=== PATIENT | male | born 1930 | race Caucasian/White ===

== ENCOUNTER 2017-02-07 13:04 | Emergency (ER) | payer MEDICARE, OTHER ==
[2017-02-07 13:11] VITALS: BP 151/85
[2017-02-07] MEDS ORDERED: Magnesium Citrate Solution 296 ML Bottle PO ONE (14:25)
--- NOTE | 2017-02-07 14:33 | EDM.PDOC ---
ED HPI GENERAL MEDICAL PROBLEM - General Chief Complaint: General Stated Complaint: constipation Time Seen by Provider: 02/07/17 13:37 Source of Information: Reports: Patient, Family () History Limitations: Reports: No limitations - History of Present Illness INITIAL COMMENTS - FREE TEXT/NARRATIVE: Tutu is an 86 yo male who presents to the ER accompanied by his with concerns of constipation. His states he hasn't had a bowel movement for the past 6 days. She admits he has been having some difficulty with bowel movements ever since having a stroke in July. She states the stroke affected his memory, vision and general weakness. Per his , he used to have loose stools but is now having trouble with constipation. She has been giving him a stool softener (Docusate) and just started Miralax as well with no results. She states a home health nurse came and saw him yesterday and did a rectal check. Denies any stool in the vault and told them his belly was soft with good bowel sounds. Since he still hasn't went [facility] and [facility] recommended he be evaluated in the [facility]. He denies having any abdominal pain. Appetite is still strong. Admits to nausea in the morning but has been that way since the stroke. No emesis. Onset: gradual - Related Data Allergies Allergy/AdvReac Type Severity Reaction Status Date / Time No Known Allergies Allergy Verified 02/07/17 13:18 Home Meds: Home Meds Aspirin [Halfprin] 81 mg PO DAILY 09/10/15 [History] Atenolol 50 mg PO DAILY 09/10/15 [History] Diltiazem [Cardizem CD] 240 mg PO DAILY 09/10/15 [History] Hydroxyurea [Hydrea] 1 cap PO DAILY 09/10/15 [History] Losartan [Cozaar] 25 mg PO DAILY 09/10/15 [History] DULoxetine HCl [Duloxetine HCl] 60 mg PO DAILY 02/07/17 [History] Dabigatran Etexilate Mesylate [Pradaxa] 150 mg PO BID 02/07/17 [History] Docusate Sodium [Stool Softener] 50 mg PO BID 02/07/17 [History] Melatonin 5 mg PO DAILY 02/07/17 [History] Ondansetron HCl [Zofran] 4 mg PO TID PRN 02/07/17 [History] Polyethylene Glycol 3350 [MiraLAX] 17 gm PO BID 02/07/17 [History] atorvaSTATin Calcium [Atorvastatin Calcium] 20 mg PO DAILY 02/07/17 [History] Past Medical History HEENT History: Reports: Cataract Other HEENT History: frequent nasal drainage Cardiovascular History: Reports: Blood clots/VTE/DVT, High cholesterol, Hypertension Gastrointestinal History: Reports: Chronic constipation Genitourinary History: Reports: Other (see below) Other Genitourinary History: prostrate cancer Musculoskeletal History: Reports: Arthritis Neurological History: Reports: CVA Other Neuro History: thoughts of a "mini" stroke in past Psychiatric History: Reports: Depression Other Hematologic History: high platelet count Oncologic (Cancer) History: Reports: Prostate - Past Surgical History HEENT Surgical History: Reports: Cataract surgery GI Surgical History: Reports: Hernia repair/other Other Male Surgeries/Procedures: removal of prostate for CA Neurological Surgical History: Reports: None Social & Family History - Tobacco Use Smoking Status *Q: Never Smoker Used Tobacco, but Quit: Yes Month Tobacco Last Used: 1964 ED ROS GENERAL - Review of Systems Review Of Systems: See Below Constitutional: Reports: no symptoms HEENT: Reports: No symptoms Respiratory: Reports: No Symptoms Cardiovascular: Reports: No symptoms GI/Abdominal: Reports: Constipation, Nausea. Denies: Abdominal pain, Bloody stool, Diarrhea, Decreased appetite, Distension, Vomiting : Reports: no symptoms ED EXAM, GENERAL - Physical Exam Exam: See Below Exam Limited By: No limitations General Appearance: alert, no apparent distress Head: atraumatic, normocephalic Neck: normal inspection, supple, non-tender Respiratory/Chest: no respiratory distress, lungs clear, normal breath sounds, no accessory muscle use, chest non-tender Cardiovascular: regular rate, rhythm, no murmur GI/Abdominal: normal bowel sounds, soft, non tender, no organomegaly, no distention, no abnormal bruit, no mass Extremities: normal inspection Neurological: alert, oriented, no motor/sensory deficits Psychiatric: normal affect, normal mood Skin Exam: Warm, Dry, Intact, Normal color Course - Vital Signs Last Recorded V/S: Last Vital Signs Temp 97.8 F 02/07/17 13:07 Pulse 60 02/07/17 13:07 Resp 16 02/07/17 13:07 BP 151/85 H 02/07/17 13:07 Pulse Ox 98 04/05/17 13:07 - Orders/Labs/Meds Orders: Active Orders 24 hr Category Date Time Status Abdomen 2V AP Flat Upright [CR] Routine Exams 02/07/17 13:28 Ordered Meds: Medications Discontinued Medications Generic Name Dose Route Start Last Admin Trade Name Peggy PRN Reason Stop Dose Admin Magnesium Citrate 0 ml 02/07/17 14:25 Citrate Of Magnesia PO 02/07/17 14:26 ONETIME ONE Departure - Departure Time of Disposition: 14:34 Disposition: Home, Self-Care 01 Condition: good Clinical Impression: Constipation Instructions: Constipation, Adult Forms: ED Department Discharge Additional Instructions: 1) Continue with pushing fluids. 2) May start Miralax 17gms daily ( 1 cap full). 3) Use Magnesium Citrate - Start with 1/2 bottle initially, if no advancement of bowels, recommend finishing bottle a few hours later. 4) Follow up if any concerns. - Problem List & Annotations (1) Constipation SNOMED Code(s): 05646638 Code(s): K59.00 - CONSTIPATION, UNSPECIFIED Status: Acute Current Visit: Yes Qualifiers: Constipation type: unspecified constipation type Qualified Code(s): K59.00 - Constipation, unspecified - Problem List Review Problem List Initiated/Reviewed/Updated: Yes - My Orders Last 24 Hours: My Active Orders 02/07/17 13:28 Abdomen 2V AP Flat Upright [CR] Routine - Assessment/Plan Last 24 Hours: My Active Orders 02/07/17 13:28 Abdomen 2V AP Flat Upright [CR] Routine
== END 2017-02-07 14:40 | disposition home or self-care (01) ==
LOC: CC.ED 13:04
DX: K59.00 Constipation, unspecified (principal); E78.00 Pure hypercholesterolemia, unspecified; I10 Essential (primary) hypertension; M19.90 Unspecified osteoarthritis, unspecified site; Z86.73 Personal history of transient ischemic attack (TIA), and cerebral infarction without residual deficits; F32.9 Major depressive disorder, single episode, unspecified; Z79.899 Other long term (current) drug therapy; Z98.49 Cataract extraction status, unspecified eye; Z79.82 Long term (current) use of aspirin
CPT/HCPCS: 74020; 99283; A9270